=== PATIENT | male | born 2000 | race Caucasian/White ===

== ENCOUNTER 2024-11-21 06:01 | Emergency (ER) | payer SELFPAY ==
[2024-11-21] MEDS ORDERED: Acetaminophen 500 MG TAB ONE (06:58)
== END 2024-11-21 07:04 | disposition home or self-care (01) ==
LOC: NAV ERS 06:01
DX: M54.50 Low back pain, unspecified (principal); X50.9XXA Other and unspecified overexertion or strenuous movements or postures, initial encounter
CPT/HCPCS: 99283